=== PATIENT | male | born 1945 | race African-American/Black ===

== ENCOUNTER 2021-07-09 17:53 | Observation (INO) ==
[2021-07-10] MEDS ORDERED: ONDANSETRON 4 MG/2 ML VIAL IV STA (01:23)
[2021-07-10] MEDS ORDERED: HYDROmorphone 2 MG/1 ML VIAL IV ONE ×2 (01:23→15:42)
[2021-07-10] MEDS ORDERED: KETOROLAC 30 MG/1 ML VIAL IV STA (01:23)
[2021-07-10] MEDS ORDERED: METHOCARBAMOL 1,000 MG/10 ML VIAL IV STA (01:24)
[2021-07-10 01:54] LABS: Basophils # 0.1 10*3/uL (0.0-0.2); Basophils % 0.8 % (0.0-0.8); Eosinophils # 0.2 10*3/uL (0.0-0.87); Hematocrit 50.4 VOL% (42.0-52.0); Hemoglobin 17.1 GM/DL (14.0-18.0); Immature Granulocytes % 0.8 %; Immature Granulocytes Absolute 0.09 #; Lymphocytes # 3.5 10*3/uL (1.4-4.0); Lymphocytes % 31.3 % (21.2-54.2); Mean Corpuscular HGB Conc 33.9 GM/DL (32-36); Mean Corpuscular Volume 87.2 FL (87-102); Mean Platelet Volume 10.5 FL (9.6-12.0); Monocytes % 9.7 % (1.7-12.7); Neutrophils % 55.4 % (38.7-73.9); Platelet Count 209 T/CUMM (130-400); Red Blood Count 5.78 MC/CUMM (3.8-5.5); Red Cell Distribution Width 12.3 % (9.3-17.3); White Blood Count 11.1 T/CUMM (4-12)
[2021-07-10 01:57] LABS: Bilirubin,Urine Negative (Negative); Blood, Urine Negative (Negative); Glucose,Urine (UA) Negative (Negative); Hyaline Casts,Urine 1 /LPF (0-3); Ketones,Urine Negative (Negative); Mucus,Urine Occasional /LPF (Occasional); Nitrite,Urine Negative (Negative); Protein,Urine Negative; RBC,Urine 2 /HPF (0-4); Urine Appearance CLEAR (Clear); Urine Color Yellow (Yellow); Urine Specific Gravity 1.024 (1.001-1.035); Urine Urobilinogen < 2.0 EU/DL (<2.0)
[2021-07-10 02:11] LABS: Albumin 3.8 G/DL (3.4-5.0); Bilirubin,Total 0.9 MG/DL (0.20-1.00); Calcium 9.3 MG/DL (8.5-10.1); Osmolality,Calculated 274.4 MOS/KG (273-304); PT Patient Result 11.4 SECS (10.5-12.0); Potassium 3.7 MMOL/L (3.5-5.1); Total Protein 8.4 G/DL (6.4-8.2)
[2021-07-10] MEDS ORDERED: ACETAMINOPHEN 325 MG TABLET PO PRN (05:56)
[2021-07-10] MEDS ORDERED: ONDANSETRON 4 MG/2 ML VIAL IV PRN (05:56)
[2021-07-10] MEDS ORDERED: LACTULOSE 20 GM/30 ML UDCUP PO PRN (05:56)
[2021-07-10] MEDS: HYDROmorphone 2 MG/1 ML VIAL IV PRN ×2 (06:10→14:01)
[2021-07-10] MEDS: ENOXAPARIN 40 MG/0.4 ML SYRINGE SUBCUT SCH (06:11)
[2021-07-10] MEDS: SODIUM CHLORIDE 0.9% 1,000 ML IV SCH ×2 (07:25→20:21)
[2021-07-10] MEDS ORDERED: PANTOPRAZOLE 40 MG VIAL IV SCH (09:00)
[2021-07-10] MEDS: DOCUSATE SODIUM 100 MG CAPSULE PO SCH ×2 (10:26→20:15)
[2021-07-10] MEDS ORDERED: ONDANSETRON 4 MG TABLET PO PRN (14:22)
[2021-07-10] MEDS ORDERED: FUROSEMIDE 20 MG/2 ML VIAL IV ONE (14:25)
[2021-07-10] MEDS ORDERED: DIAZEPAM 5 MG TABLET PO ONE (15:39)
[2021-07-10] MEDS: FLECAINIDE 50 MG TABLET PO SCH ×2 (18:26→20:15)
[2021-07-10] MEDS: LEVOTHYROXINE 100 MCG TABLET PO SCH (18:27)
[2021-07-10] MEDS: methylPREDNISolone SOD SUC 40 MG/1 ML VIAL IV SCH (18:31)
[2021-07-10] MEDS: DOXAZOSIN 1 MG TABLET PO SCH (18:33)
[2021-07-10] MEDS: LIDOCAINE 5% PATCH TRANSDERM SCH (18:34)
[2021-07-10] MEDS: GABAPENTIN 100 MG CAPSULE PO SCH (20:15)
[2021-07-10] MEDS: KETOROLAC 15 MG/1 ML VIAL IV SCH (21:31)
[2021-07-11] MEDS: methylPREDNISolone SOD SUC 40 MG/1 ML VIAL IV SCH ×2 (01:45→14:39)
[2021-07-11] MEDS ORDERED: MAGNESIUM HYDROXIDE SUSP 30 ML UDCUP PO PRN (03:24)
[2021-07-11] MEDS: oxyCODONE/ACETAMINOPHEN 5-325 MG TABLET PO PRN ×2 (04:00→23:37)
[2021-07-11] MEDS: KETOROLAC 15 MG/1 ML VIAL IV SCH ×3 (05:54→21:32)
[2021-07-11] MEDS: PANTOPRAZOLE 40 MG TABLET PO SCH (05:54)
[2021-07-11] MEDS: LEVOTHYROXINE 100 MCG TABLET PO SCH (05:54)
[2021-07-11 06:16] LABS: Basophils % 0.1 % (0.0-0.8); Eosinophils % 0.1 % (0.00-10.9); Hematocrit 46.4 VOL% (42.0-52.0); Hemoglobin 15.5 GM/DL (14.0-18.0); Immature Granulocytes % 0.8 %; Immature Granulocytes Absolute 0.07 #; Lymphocytes # 0.9 10*3/uL (1.4-4.0); Lymphocytes % 10.5 % (21.2-54.2); Mean Corpuscular HGB Conc 33.4 GM/DL (32-36); Mean Platelet Volume 10.6 FL (9.6-12.0); Monocytes % 3.4 % (1.7-12.7); Neutrophils % 85.1 % (38.7-73.9); Platelet Count 197 T/CUMM (130-400); Red Blood Count 5.27 MC/CUMM (3.8-5.5); Red Cell Distribution Width 12.2 % (9.3-17.3); White Blood Count 8.7 T/CUMM (4-12)
[2021-07-11 06:33] LABS: Albumin 3.1 G/DL (3.4-5.0); Bilirubin,Total 2.5 MG/DL (0.20-1.00); Calcium 8.4 MG/DL (8.5-10.1); Potassium 4.8 MMOL/L (3.5-5.1); Total Protein 7.2 G/DL (6.4-8.2)
[2021-07-11] MEDS: DOXAZOSIN 1 MG TABLET PO SCH (09:26)
[2021-07-11] MEDS: ENOXAPARIN 40 MG/0.4 ML SYRINGE SUBCUT SCH (09:26)
[2021-07-11] MEDS: DOCUSATE SODIUM 100 MG CAPSULE PO SCH ×2 (09:26→21:32)
[2021-07-11] MEDS: FLECAINIDE 50 MG TABLET PO SCH ×2 (09:26→21:32)
[2021-07-11] MEDS: LIDOCAINE 5% PATCH TRANSDERM SCH (09:27)
[2021-07-11] MEDS: SODIUM CHLORIDE 0.9% 1,000 ML IV SCH (11:52)
[2021-07-11] MEDS: HYDROmorphone 2 MG/1 ML VIAL IV PRN (17:46)
[2021-07-11] MEDS: GABAPENTIN 100 MG CAPSULE PO SCH (21:32)
[2021-07-12] MEDS: HYDROmorphone 2 MG/1 ML VIAL IV PRN ×4 (02:40→23:50)
[2021-07-12] MEDS: methylPREDNISolone SOD SUC 40 MG/1 ML VIAL IV SCH ×2 (02:59→14:07)
[2021-07-12] MEDS: SODIUM CHLORIDE 0.9% 1,000 ML IV SCH ×2 (04:08→18:49)
[2021-07-12] MEDS: KETOROLAC 15 MG/1 ML VIAL IV SCH ×3 (05:39→21:24)
[2021-07-12] MEDS: LEVOTHYROXINE 100 MCG TABLET PO SCH (05:40)
[2021-07-12] MEDS: PANTOPRAZOLE 40 MG TABLET PO SCH (05:40)
[2021-07-12] MEDS: ENOXAPARIN 40 MG/0.4 ML SYRINGE SUBCUT SCH (08:28)
[2021-07-12] MEDS: DOCUSATE SODIUM 100 MG CAPSULE PO SCH ×2 (08:29→21:21)
[2021-07-12] MEDS: FLECAINIDE 50 MG TABLET PO SCH ×2 (08:29→21:21)
[2021-07-12] MEDS: DOXAZOSIN 1 MG TABLET PO SCH (08:29)
[2021-07-12] MEDS: oxyCODONE/ACETAMINOPHEN 5-325 MG TABLET PO PRN (12:25)
[2021-07-12] MEDS: LIDOCAINE 5% PATCH TRANSDERM SCH (14:07)
[2021-07-12] MEDS: GABAPENTIN 100 MG CAPSULE PO SCH (21:22)
[2021-07-13] MEDS: methylPREDNISolone SOD SUC 40 MG/1 ML VIAL IV SCH ×2 (02:16→22:03)
[2021-07-13] MEDS: HYDROmorphone 2 MG/1 ML VIAL IV PRN (04:40)
[2021-07-13 05:30] LABS: Basophils % 0.4 % (0.0-0.8); Eosinophils # 0.1 10*3/uL (0.0-0.87); Eosinophils % 0.8 % (0.00-10.9); Hematocrit 46.7 VOL% (42.0-52.0); Hemoglobin 15.4 GM/DL (14.0-18.0); Immature Granulocytes % 0.5 %; Immature Granulocytes Absolute 0.04 #; Lymphocytes # 1.2 10*3/uL (1.4-4.0); Lymphocytes % 14.1 % (21.2-54.2); Mean Corpuscular Volume 89.6 FL (87-102); Mean Platelet Volume 10.5 FL (9.6-12.0); Monocytes % 4.2 % (1.7-12.7); Platelet Count 218 T/CUMM (130-400); Red Blood Count 5.21 MC/CUMM (3.8-5.5); Red Cell Distribution Width 12.1 % (9.3-17.3); White Blood Count 8.4 T/CUMM (4-12)
[2021-07-13] MEDS: KETOROLAC 15 MG/1 ML VIAL IV SCH ×3 (05:40→22:04)
[2021-07-13 06:15] LABS: Bilirubin,Total 1.2 MG/DL (0.20-1.00); Calcium 8.4 MG/DL (8.5-10.1); Osmolality,Calculated 272.1 MOS/KG (273-304); Potassium 5.6 MMOL/L (3.5-5.1); Total Protein 7.2 G/DL (6.4-8.2)
[2021-07-13] MEDS: LEVOTHYROXINE 100 MCG TABLET PO SCH (06:18)
[2021-07-13] MEDS: PANTOPRAZOLE 40 MG TABLET PO SCH (06:18)
[2021-07-13] MEDS: LIDOCAINE 5% PATCH TRANSDERM SCH (09:07)
[2021-07-13] MEDS: DOXAZOSIN 1 MG TABLET PO SCH (09:08)
[2021-07-13] MEDS: FLECAINIDE 50 MG TABLET PO SCH ×2 (09:08→22:04)
[2021-07-13] MEDS: DOCUSATE SODIUM 100 MG CAPSULE PO SCH ×2 (09:08→22:04)
[2021-07-13] MEDS ORDERED: propofoL 200 MG/20 ML VIAL IV ONE ×2 (10:41→12:16)
[2021-07-13] MEDS ORDERED: fentaNYL 100 MCG/2 ML VIAL ONE (10:41)
[2021-07-13] MEDS ORDERED: LIDOCAINE 2% 5 ML VIAL ONE (10:41)
[2021-07-13] MEDS ORDERED: BUPIVACAINE 0.5% 50 ML VIAL ONE (11:36)
[2021-07-13] MEDS ORDERED: DEXAMETHASONE 10 MG/1 ML VIAL ONE (11:36)
[2021-07-13] MEDS ORDERED: LABETALOL 20 MG/4 ML SYRINGE IV ONE (12:16)
[2021-07-13] MEDS ORDERED: ONDANSETRON 4 MG/2 ML VIAL IV PRN (12:36)
[2021-07-13] MEDS ORDERED: HYDROmorphone 2 MG/1 ML VIAL IV PRN (12:36)
[2021-07-13] MEDS: SODIUM CHLORIDE 0.9% 1,000 ML IV SCH (18:40)
[2021-07-13] MEDS ORDERED: SODIUM POLYSTYRENE SULFATE 15 GM/60 ML BOTTLE PO STA (20:26)
[2021-07-13] MEDS ORDERED: GABAPENTIN 300 MG CAPSULE PO SCH (21:00)
[2021-07-14] MEDS: oxyCODONE/ACETAMINOPHEN 5-325 MG TABLET PO PRN (02:50)
[2021-07-14 05:10] LABS: Basophils % 0.1 % (0.0-0.8); Eosinophils % 0.1 % (0.00-10.9); Hematocrit 43.3 VOL% (42.0-52.0); Hemoglobin 14.2 GM/DL (14.0-18.0); Immature Granulocytes % 0.6 %; Immature Granulocytes Absolute 0.07 #; Lymphocytes # 1.4 10*3/uL (1.4-4.0); Lymphocytes % 13.1 % (21.2-54.2); Mean Corpuscular HGB Conc 32.8 GM/DL (32-36); Mean Corpuscular Volume 89.1 FL (87-102); Mean Platelet Volume 10.3 FL (9.6-12.0); Monocytes % 7.1 % (1.7-12.7); Platelet Count 217 T/CUMM (130-400); Red Blood Count 4.86 MC/CUMM (3.8-5.5); Red Cell Distribution Width 11.9 % (9.3-17.3)
[2021-07-14 05:43] LABS: Albumin 2.8 G/DL (3.4-5.0); Bilirubin,Total 1.1 MG/DL (0.20-1.00); Calcium 8.2 MG/DL (8.5-10.1); Osmolality,Calculated 277.8 MOS/KG (273-304); Potassium 4.5 MMOL/L (3.5-5.1); Total Protein 6.5 G/DL (6.4-8.2)
[2021-07-14] MEDS: LEVOTHYROXINE 100 MCG TABLET PO SCH (05:52)
[2021-07-14] MEDS: PANTOPRAZOLE 40 MG TABLET PO SCH (05:52)
[2021-07-14] MEDS: KETOROLAC 15 MG/1 ML VIAL IV SCH ×2 (05:54→15:04)
[2021-07-14] MEDS: DOCUSATE SODIUM 100 MG CAPSULE PO SCH (09:14)
[2021-07-14] MEDS: FLECAINIDE 50 MG TABLET PO SCH (09:15)
[2021-07-14] MEDS: LIDOCAINE 5% PATCH TRANSDERM SCH (09:15)
[2021-07-14] MEDS: DOXAZOSIN 1 MG TABLET PO SCH (09:15)
[2021-07-14] MEDS: methylPREDNISolone SOD SUC 40 MG/1 ML VIAL IV SCH (09:15)
[2021-07-14 11:36] VITALS: BP 144/73
== END 2021-07-14 15:56 | disposition home or self-care (01) ==
LOC: N.ED 17:53 → N.EDINP 17:53 → N.5E 07-10 07:34
PROVIDERS: ADMIT Internal Medicine; ATTEND Internal Medicine

== ENCOUNTER 2021-08-05 01:26 | Inpatient (IN) ==
[2021-08-05 02:15] LABS: Basophils # 0.1 10*3/uL (0.0-0.2); Basophils % 1.3 % (0.0-0.8); Eosinophils # 0.2 10*3/uL (0.0-0.87); Eosinophils % 2.8 % (0.00-10.9); Hematocrit 41.4 VOL% (42.0-52.0); Hemoglobin 14.5 GM/DL (14.0-18.0); Immature Granulocytes % 0.9 %; Immature Granulocytes Absolute 0.06 #; Lymphocytes # 2.3 10*3/uL (1.4-4.0); Lymphocytes % 35.2 % (21.2-54.2); Mean Corpuscular Volume 85.4 FL (87-102); Mean Platelet Volume 9.7 FL (9.6-12.0); Monocytes % 10.2 % (1.7-12.7); Neutrophils % 49.6 % (38.7-73.9); Platelet Count 270 T/CUMM (130-400); Red Blood Count 4.85 MC/CUMM (3.8-5.5); Red Cell Distribution Width 12.1 % (9.3-17.3); White Blood Count 6.4 T/CUMM (4-12)
[2021-08-05] MEDS ORDERED: ONDANSETRON 4 MG/2 ML VIAL IV STA (02:17)
[2021-08-05] MEDS ORDERED: NITROGLYCERIN 2% OINT 1 INCH/GM PACK TOP STA (02:17)
[2021-08-05] MEDS ORDERED: ASPIRIN 325 MG TABLET PO STA (02:17)
[2021-08-05] MEDS ORDERED: MORPHINE 2 MG/1 ML SYRINGE IV STA (02:17)
[2021-08-05] MEDS ORDERED: METOPROLOL TARTRATE 25 MG TABLET PO STA (02:17)
[2021-08-05] MEDS ORDERED: MORPHINE 4 MG/1 ML VIAL ONE ×2 (02:29→02:40)
[2021-08-05 02:37] LABS: Albumin 3.4 G/DL (3.4-5.0); Bilirubin,Total 0.8 MG/DL (0.20-1.00); Calcium 9.4 MG/DL (8.5-10.1); Osmolality,Calculated 273.8 MOS/KG (273-304); Potassium 3.9 MMOL/L (3.5-5.1); Total Protein 6.9 G/DL (6.4-8.2)
[2021-08-05] MEDS ORDERED: ENOXAPARIN 100 MG/ML SYRINGE SUBCUT STA (02:43)
[2021-08-05] MEDS ORDERED: METOPROLOL TARTRATE 5 MG/5 ML VIAL IV STA (02:43)
[2021-08-05] MEDS ORDERED: ACETAMINOPHEN 325 MG TABLET PO PRN (03:18)
[2021-08-05] MEDS ORDERED: SODIUM CHLORIDE 0.9% 1,000 ML IV SCH (03:18)
[2021-08-05] MEDS ORDERED: ONDANSETRON 4 MG/2 ML VIAL IV PRN (03:18)
[2021-08-05 03:55] LABS: Basophils # 0.1 10*3/uL (0.0-0.2); Basophils % 1.2 % (0.0-0.8); Eosinophils # 0.2 10*3/uL (0.0-0.87); Eosinophils % 2.9 % (0.00-10.9); Hematocrit 40.9 VOL% (42.0-52.0); Immature Granulocytes Absolute 0.07 #; Lymphocytes # 2.5 10*3/uL (1.4-4.0); Lymphocytes % 35.9 % (21.2-54.2); Mean Corpuscular HGB Conc 34.2 GM/DL (32-36); Mean Corpuscular Volume 86.8 FL (87-102); Mean Platelet Volume 9.6 FL (9.6-12.0); Monocytes % 9.9 % (1.7-12.7); Neutrophils % 49.1 % (38.7-73.9); Platelet Count 266 T/CUMM (130-400); Red Blood Count 4.71 MC/CUMM (3.8-5.5); Red Cell Distribution Width 12.1 % (9.3-17.3); White Blood Count 6.9 T/CUMM (4-12)
[2021-08-05 04:16] LABS: Albumin 3.3 G/DL (3.4-5.0); Bilirubin,Total 0.7 MG/DL (0.20-1.00); Calcium 9.2 MG/DL (8.5-10.1); Osmolality,Calculated 274.7 MOS/KG (273-304); Potassium 3.7 MMOL/L (3.5-5.1); Risk Ratio 5.32; Total Protein 7.1 G/DL (6.4-8.2); VLDL Cholesterol 25.8 MG/DL
[2021-08-05] MEDS: NITROGLYCERIN 2% OINT 1 INCH/GM PACK TOP SCH ×2 (06:07→12:04)
[2021-08-05] MEDS: MORPHINE 4 MG/1 ML VIAL IV PRN (07:22)
[2021-08-05] MEDS ORDERED: diphenhydrAMINE CAP 25 MG CAPSULE PO ONE (08:00)
[2021-08-05] MEDS ORDERED: DIAZEPAM 5 MG TABLET PO ONE (08:00)
[2021-08-05] MEDS ORDERED: diphenhydrAMINE CAP 25 MG CAPSULE ONE (08:08)
[2021-08-05] MEDS: PANTOPRAZOLE 40 MG VIAL IV SCH (08:57)
[2021-08-05] MEDS: ENOXAPARIN 80 MG/0.8 ML SYRINGE SUBCUT SCH ×2 (08:57→21:31)
[2021-08-05] MEDS: DOCUSATE SODIUM 100 MG CAPSULE PO SCH ×2 (08:57→21:31)
[2021-08-05] MEDS ORDERED: ASPIRIN EC 325 MG TABLET PO SCH (09:00)
[2021-08-05] MEDS ORDERED: HYDROmorphone 2 MG/1 ML VIAL ONE (09:42)
[2021-08-05] MEDS ORDERED: LIDOCAINE 1% 20 ML VIAL ONE (09:42)
[2021-08-05] MEDS ORDERED: MIDAZOLAM 2 MG/2 ML VIAL ONE (09:42)
[2021-08-05] MEDS ORDERED: NITROGLYCERIN 2% OINT 1 INCH/GM PACK TOP ONE (12:03)
[2021-08-05] MEDS ORDERED: METOPROLOL TARTRATE 5 MG/5 ML VIAL IV ONE (12:30)
[2021-08-05] MEDS ORDERED: AMIODARONE INJ 150 MG in DEXTROSE 5% 100 ML IV ONE (12:36)
[2021-08-05] MEDS ORDERED: MAGNESIUM HYDROXIDE SUSP 30 ML UDCUP PO PRN (12:39)
[2021-08-05] MEDS ORDERED: LACTULOSE 20 GM/30 ML UDCUP PO PRN (12:39)
[2021-08-05] MEDS ORDERED: METOPROLOL TARTRATE 25 MG TABLET PO SCH (12:40)
[2021-08-05] MEDS ORDERED: POTASSIUM CHLORIDE 20 MEQ TABLET PO ONE (12:42)
[2021-08-05] MEDS ORDERED: oxyCODONE/ACETAMINOPHEN 5-325 MG TABLET PO PRN (12:46)
[2021-08-05] MEDS: ASCORBIC ACID 500 MG TABLET PO SCH ×2 (12:56→21:30)
[2021-08-05] MEDS: FLECAINIDE 100 MG TABLET PO SCH ×2 (12:58→21:31)
[2021-08-05] MEDS ORDERED: AMIODARONE INJ 450 MG in DEXTROSE 5% 241 ML IV SCH (13:00)
[2021-08-05] MEDS ORDERED: SODIUM CHLORIDE 0.45% 1,000 ML IV SCH (13:00)
[2021-08-05] MEDS ORDERED: FLECAINIDE 100 MG TABLET PO ONE (16:14)
[2021-08-05 17:18] LABS: Hematocrit 41.1 VOL% (42.0-52.0)
[2021-08-05 17:25] LABS: Calcium 8.6 MG/DL (8.5-10.1); Potassium 4.8 MMOL/L (3.5-5.1)
[2021-08-05] MEDS ORDERED: NON-FORMULARY MEDICATION (Docusate Sodium Cap [Colace Cap] 100 MG) PO SCH (21:00)
[2021-08-05] MEDS: GABAPENTIN 300 MG CAPSULE PO SCH (21:30)
[2021-08-06] MEDS: LEVOTHYROXINE 100 MCG TABLET PO SCH (05:42)
[2021-08-06 05:43] LABS: Basophils # 0.1 10*3/uL (0.0-0.2); Basophils % 0.7 % (0.0-0.8); Eosinophils # 0.1 10*3/uL (0.0-0.87); Eosinophils % 1.5 % (0.00-10.9); Hematocrit 39.2 VOL% (42.0-52.0); Hemoglobin 13.4 GM/DL (14.0-18.0); Immature Granulocytes % 0.8 %; Immature Granulocytes Absolute 0.07 #; Lymphocytes # 2.4 10*3/uL (1.4-4.0); Lymphocytes % 27.5 % (21.2-54.2); Mean Corpuscular HGB Conc 34.2 GM/DL (32-36); Mean Corpuscular Volume 87.5 FL (87-102); Mean Platelet Volume 10.1 FL (9.6-12.0); Monocytes % 12.2 % (1.7-12.7); Neutrophils % 57.3 % (38.7-73.9); Platelet Count 258 T/CUMM (130-400); Red Blood Count 4.48 MC/CUMM (3.8-5.5); Red Cell Distribution Width 12.5 % (9.3-17.3); White Blood Count 8.6 T/CUMM (4-12)
[2021-08-06 05:49] LABS: Calcium 8.6 MG/DL (8.5-10.1); Osmolality,Calculated 272.1 MOS/KG (273-304); Potassium 4.1 MMOL/L (3.5-5.1)
[2021-08-06] MEDS: DOCUSATE SODIUM 100 MG CAPSULE PO SCH ×3 (08:58→22:42)
[2021-08-06] MEDS: ASCORBIC ACID 500 MG TABLET PO SCH ×2 (08:59→22:42)
[2021-08-06] MEDS: DOXAZOSIN 1 MG TABLET PO SCH (08:59)
[2021-08-06] MEDS: predniSONE 10 MG TABLET PO SCH (08:59)
[2021-08-06] MEDS: FLECAINIDE 100 MG TABLET PO SCH ×2 (08:59→22:42)
[2021-08-06] MEDS: ERGOCALCIFEROL 50,000 UNIT CAPSULE PO SCH (08:59)
[2021-08-06] MEDS: ENOXAPARIN 80 MG/0.8 ML SYRINGE SUBCUT SCH (09:00)
[2021-08-06] MEDS: LIDOCAINE 5% PATCH TRANSDERM SCH (09:04)
[2021-08-06] MEDS: PANTOPRAZOLE 40 MG VIAL IV SCH (11:08)
[2021-08-06] MEDS: GABAPENTIN 300 MG CAPSULE PO SCH (22:42)
[2021-08-06] MEDS: APIXABAN 5 MG TABLET PO SCH (22:42)
[2021-08-07 04:30] LABS: Basophils # 0.1 10*3/uL (0.0-0.2); Basophils % 0.7 % (0.0-0.8); Eosinophils # 0.2 10*3/uL (0.0-0.87); Hematocrit 36.4 VOL% (42.0-52.0); Hemoglobin 12.6 GM/DL (14.0-18.0); Immature Granulocytes % 0.6 %; Immature Granulocytes Absolute 0.05 #; Lymphocytes # 2.5 10*3/uL (1.4-4.0); Lymphocytes % 31.3 % (21.2-54.2); Mean Corpuscular HGB Conc 34.6 GM/DL (32-36); Mean Corpuscular Volume 87.7 FL (87-102); Mean Platelet Volume 10.2 FL (9.6-12.0); Monocytes % 10.9 % (1.7-12.7); Neutrophils % 54.5 % (38.7-73.9); Platelet Count 258 T/CUMM (130-400); Red Blood Count 4.15 MC/CUMM (3.8-5.5); Red Cell Distribution Width 12.3 % (9.3-17.3)
[2021-08-07 04:41] LABS: Calcium 8.1 MG/DL (8.5-10.1); Osmolality,Calculated 281.3 MOS/KG (273-304); Potassium 3.5 MMOL/L (3.5-5.1)
[2021-08-07] MEDS: LEVOTHYROXINE 100 MCG TABLET PO SCH (05:45)
[2021-08-07] MEDS: MORPHINE 4 MG/1 ML VIAL IV PRN ×2 (05:51→16:45)
[2021-08-07] MEDS: LIDOCAINE 5% PATCH TRANSDERM SCH (08:51)
[2021-08-07] MEDS: DOXAZOSIN 1 MG TABLET PO SCH (08:51)
[2021-08-07] MEDS: DOCUSATE SODIUM 100 MG CAPSULE PO SCH (08:51)
[2021-08-07] MEDS: FLECAINIDE 100 MG TABLET PO SCH ×2 (08:51→20:50)
[2021-08-07] MEDS: APIXABAN 5 MG TABLET PO SCH ×2 (08:52→20:50)
[2021-08-07] MEDS: PANTOPRAZOLE 40 MG VIAL IV SCH (08:52)
[2021-08-07] MEDS: ASCORBIC ACID 500 MG TABLET PO SCH ×2 (08:52→20:50)
[2021-08-07] MEDS: predniSONE 10 MG TABLET PO SCH (08:58)
[2021-08-07] MEDS: METOPROLOL SUCCINATE XL 25 MG TABLET PO SCH (09:01)
[2021-08-07] MEDS: GABAPENTIN 300 MG CAPSULE PO SCH (20:50)
[2021-08-08] MEDS: HYDROmorphone 2 MG TABLET PO PRN ×2 (04:12→16:25)
[2021-08-08 06:10] LABS: Albumin 2.6 G/DL (3.4-5.0); Bilirubin,Total 0.4 MG/DL (0.20-1.00); Calcium 8.7 MG/DL (8.5-10.1); Osmolality,Calculated 280.4 MOS/KG (273-304); Potassium 3.1 MMOL/L (3.5-5.1); Total Protein 6.3 G/DL (6.4-8.2)
[2021-08-08] MEDS: LEVOTHYROXINE 100 MCG TABLET PO SCH (06:18)
[2021-08-08] MEDS: DOXAZOSIN 1 MG TABLET PO SCH (09:21)
[2021-08-08] MEDS: FLECAINIDE 100 MG TABLET PO SCH ×2 (09:21→21:20)
[2021-08-08] MEDS: METOPROLOL SUCCINATE XL 25 MG TABLET PO SCH (09:21)
[2021-08-08] MEDS: predniSONE 10 MG TABLET PO SCH (09:22)
[2021-08-08] MEDS: DOCUSATE SODIUM 100 MG CAPSULE PO SCH (09:22)
[2021-08-08] MEDS: PANTOPRAZOLE 40 MG VIAL IV SCH (09:22)
[2021-08-08] MEDS: APIXABAN 5 MG TABLET PO SCH ×2 (09:22→21:20)
[2021-08-08] MEDS: ASCORBIC ACID 500 MG TABLET PO SCH ×2 (09:22→21:20)
[2021-08-08] MEDS: MORPHINE 4 MG/1 ML VIAL IV PRN (09:23)
[2021-08-08] MEDS: LIDOCAINE 5% PATCH TRANSDERM SCH (09:33)
[2021-08-08] MEDS: GABAPENTIN 300 MG CAPSULE PO SCH (21:20)
[2021-08-09] MEDS: MORPHINE 4 MG/1 ML VIAL IV PRN (03:46)
[2021-08-09 05:14] LABS: Basophils # 0.1 10*3/uL (0.0-0.2); Basophils % 1.1 % (0.0-0.8); Eosinophils # 0.3 10*3/uL (0.0-0.87); Eosinophils % 2.8 % (0.00-10.9); Hematocrit 37.8 VOL% (42.0-52.0); Hemoglobin 12.7 GM/DL (14.0-18.0); Immature Granulocytes % 1.3 %; Immature Granulocytes Absolute 0.12 #; Lymphocytes # 2.9 10*3/uL (1.4-4.0); Lymphocytes % 30.1 % (21.2-54.2); Mean Corpuscular HGB Conc 33.6 GM/DL (32-36); Mean Corpuscular Volume 89.2 FL (87-102); Mean Platelet Volume 10.1 FL (9.6-12.0); Monocytes % 8.4 % (1.7-12.7); NRBC # 0.02 10*3/uL; Neutrophils % 56.3 % (38.7-73.9); Platelet Count 306 T/CUMM (130-400); Red Blood Count 4.24 MC/CUMM (3.8-5.5); Red Cell Distribution Width 12.3 % (9.3-17.3); White Blood Count 9.6 T/CUMM (4-12)
[2021-08-09 05:34] LABS: Albumin 2.7 G/DL (3.4-5.0); Bilirubin,Total 0.4 MG/DL (0.20-1.00); Calcium 8.9 MG/DL (8.5-10.1); Osmolality,Calculated 277.5 MOS/KG (273-304); Potassium 3.6 MMOL/L (3.5-5.1); Total Protein 6.3 G/DL (6.4-8.2)
[2021-08-09] MEDS: LEVOTHYROXINE 100 MCG TABLET PO SCH (06:02)
[2021-08-09] MEDS ORDERED: fentaNYL 12 MCG/HR PATCH TRANSDERM SCH (09:00)
[2021-08-09] MEDS: DOXAZOSIN 1 MG TABLET PO SCH (10:19)
[2021-08-09] MEDS: DOCUSATE SODIUM 100 MG CAPSULE PO SCH (10:20)
[2021-08-09] MEDS: predniSONE 10 MG TABLET PO SCH (10:20)
[2021-08-09] MEDS: FLECAINIDE 100 MG TABLET PO SCH ×2 (10:20→21:41)
[2021-08-09] MEDS: ASCORBIC ACID 500 MG TABLET PO SCH ×2 (10:20→21:40)
[2021-08-09] MEDS: METOPROLOL SUCCINATE XL 25 MG TABLET PO SCH (10:20)
[2021-08-09] MEDS: APIXABAN 5 MG TABLET PO SCH ×2 (10:20→21:40)
[2021-08-09] MEDS: LIDOCAINE 5% PATCH TRANSDERM SCH (10:23)
[2021-08-09] MEDS: PANTOPRAZOLE 40 MG VIAL IV SCH (11:30)
[2021-08-09] MEDS ORDERED: HYDROmorphone 2 MG TABLET PO SCH (14:00)
[2021-08-09] MEDS: GABAPENTIN 300 MG CAPSULE PO SCH (21:41)
[2021-08-10 05:27] LABS: Basophils # 0.1 10*3/uL (0.0-0.2); Basophils % 1.1 % (0.0-0.8); Eosinophils # 0.3 10*3/uL (0.0-0.87); Eosinophils % 2.4 % (0.00-10.9); Hematocrit 36.6 VOL% (42.0-52.0); Hemoglobin 12.4 GM/DL (14.0-18.0); Immature Granulocytes % 1.6 %; Immature Granulocytes Absolute 0.16 #; Lymphocytes # 2.9 10*3/uL (1.4-4.0); Lymphocytes % 27.9 % (21.2-54.2); Mean Corpuscular HGB Conc 33.9 GM/DL (32-36); Mean Corpuscular Volume 88.8 FL (87-102); Mean Platelet Volume 10.4 FL (9.6-12.0); Monocytes % 7.7 % (1.7-12.7); NRBC # 0.03 10*3/uL; Neutrophils % 59.3 % (38.7-73.9); Platelet Count 334 T/CUMM (130-400); Red Blood Count 4.12 MC/CUMM (3.8-5.5); Red Cell Distribution Width 12.4 % (9.3-17.3); White Blood Count 10.3 T/CUMM (4-12)
[2021-08-10] MEDS: LEVOTHYROXINE 100 MCG TABLET PO SCH (05:45)
[2021-08-10] MEDS: HYDROmorphone 2 MG TABLET PO PRN (05:45)
[2021-08-10 05:52] LABS: Albumin 2.6 G/DL (3.4-5.0); Bilirubin,Total 0.6 MG/DL (0.20-1.00); Calcium 8.5 MG/DL (8.5-10.1); Osmolality,Calculated 275.7 MOS/KG (273-304); Potassium 3.6 MMOL/L (3.5-5.1); Total Protein 6.3 G/DL (6.4-8.2)
[2021-08-10 05:53] LABS: Band Neutrophils 1 % (0-10); Eosinophils 3 % (0-10); Lymphocytes 30 % (20-55); Nucleated Red Blood Cells 1 (0-5); Segmented Neutrophils 58 % (50-85); Total Cells Counted 100
[2021-08-10 05:54] LABS: Hypochromia Slight; Microcytosis Slight; Platelet Estimate Normal
[2021-08-10] MEDS: APIXABAN 5 MG TABLET PO SCH ×2 (09:08→20:54)
[2021-08-10] MEDS: FLECAINIDE 100 MG TABLET PO SCH ×2 (09:08→20:53)
[2021-08-10] MEDS: METOPROLOL SUCCINATE XL 25 MG TABLET PO SCH (09:09)
[2021-08-10] MEDS: DOCUSATE SODIUM 100 MG CAPSULE PO SCH (09:09)
[2021-08-10] MEDS: PANTOPRAZOLE 40 MG VIAL IV SCH (09:09)
[2021-08-10] MEDS: ASCORBIC ACID 500 MG TABLET PO SCH ×2 (09:09→20:54)
[2021-08-10] MEDS: DOXAZOSIN 1 MG TABLET PO SCH (09:09)
[2021-08-10] MEDS: predniSONE 10 MG TABLET PO SCH (09:09)
[2021-08-10] MEDS: LIDOCAINE 5% PATCH TRANSDERM SCH (09:11)
[2021-08-10] MEDS: GABAPENTIN 300 MG CAPSULE PO SCH (20:53)
[2021-08-11] MEDS: HYDROmorphone 2 MG TABLET PO PRN ×2 (04:32→23:05)
[2021-08-11 05:06] LABS: Basophils # 0.1 10*3/uL (0.0-0.2); Basophils % 1.2 % (0.0-0.8); Eosinophils # 0.2 10*3/uL (0.0-0.87); Eosinophils % 2.2 % (0.00-10.9); Hematocrit 35.9 VOL% (42.0-52.0); Immature Granulocytes % 1.6 %; Immature Granulocytes Absolute 0.17 #; Mean Corpuscular HGB Conc 33.4 GM/DL (32-36); Mean Corpuscular Volume 88.9 FL (87-102); Mean Platelet Volume 10.2 FL (9.6-12.0); Monocytes % 7.4 % (1.7-12.7); NRBC # 0.02 10*3/uL; Neutrophils % 58.6 % (38.7-73.9); Platelet Count 320 T/CUMM (130-400); Red Blood Count 4.04 MC/CUMM (3.8-5.5); Red Cell Distribution Width 12.7 % (9.3-17.3); White Blood Count 10.5 T/CUMM (4-12)
[2021-08-11 05:23] LABS: Albumin 2.7 G/DL (3.4-5.0); Bilirubin,Total 0.5 MG/DL (0.20-1.00); Calcium 8.8 MG/DL (8.5-10.1); Osmolality,Calculated 275.7 MOS/KG (273-304); Potassium 3.7 MMOL/L (3.5-5.1); Total Protein 6.2 G/DL (6.4-8.2)
[2021-08-11] MEDS: LEVOTHYROXINE 100 MCG TABLET PO SCH (06:12)
[2021-08-11] MEDS: ASCORBIC ACID 500 MG TABLET PO SCH ×2 (08:59→20:22)
[2021-08-11] MEDS: APIXABAN 5 MG TABLET PO SCH ×2 (08:59→20:22)
[2021-08-11] MEDS: predniSONE 10 MG TABLET PO SCH (08:59)
[2021-08-11] MEDS: METOPROLOL SUCCINATE XL 25 MG TABLET PO SCH (08:59)
[2021-08-11] MEDS: DOCUSATE SODIUM 100 MG CAPSULE PO SCH (08:59)
[2021-08-11] MEDS: FLECAINIDE 100 MG TABLET PO SCH ×2 (09:00→20:22)
[2021-08-11] MEDS: PANTOPRAZOLE 40 MG VIAL IV SCH (09:00)
[2021-08-11] MEDS: ERGOCALCIFEROL 50,000 UNIT CAPSULE PO SCH (09:00)
[2021-08-11] MEDS: DOXAZOSIN 1 MG TABLET PO SCH (09:00)
[2021-08-11] MEDS: LIDOCAINE 5% PATCH TRANSDERM SCH (09:01)
[2021-08-11] MEDS ORDERED: fentaNYL 25 MCG/HR PATCH TRANSDERM SCH (11:29)
[2021-08-11] MEDS: GABAPENTIN 300 MG CAPSULE PO SCH ×2 (14:54→20:22)
[2021-08-12 05:54] LABS: Albumin 2.7 G/DL (3.4-5.0); Bilirubin,Total 0.8 MG/DL (0.20-1.00); Calcium 8.5 MG/DL (8.5-10.1); Osmolality,Calculated 280.4 MOS/KG (273-304); Total Protein 6.3 G/DL (6.4-8.2)
[2021-08-12] MEDS: LEVOTHYROXINE 100 MCG TABLET PO SCH (06:12)
[2021-08-12] MEDS: PANTOPRAZOLE 40 MG VIAL IV SCH ×2 (07:59→08:08)
[2021-08-12] MEDS: APIXABAN 5 MG TABLET PO SCH (10:10)
[2021-08-12] MEDS: ASCORBIC ACID 500 MG TABLET PO SCH (10:10)
[2021-08-12] MEDS: METOPROLOL SUCCINATE XL 25 MG TABLET PO SCH (10:10)
[2021-08-12] MEDS: DOCUSATE SODIUM 100 MG CAPSULE PO SCH (10:10)
[2021-08-12] MEDS: DOXAZOSIN 1 MG TABLET PO SCH (10:10)
[2021-08-12] MEDS: FLECAINIDE 100 MG TABLET PO SCH (10:10)
[2021-08-12] MEDS: predniSONE 10 MG TABLET PO SCH (10:10)
[2021-08-12] MEDS: GABAPENTIN 300 MG CAPSULE PO SCH (12:35)
[2021-08-12] MEDS: LIDOCAINE 5% PATCH TRANSDERM SCH (13:12)
[2021-08-12 14:18] VITALS: BP 117/74
[2021-08-12] MEDS ORDERED: GABAPENTIN 400 MG CAPSULE PO SCH (15:00)
[2021-08-14] MEDS ORDERED: APIXABAN 5 MG TABLET PO SCH (09:00)
== END 2021-08-12 19:30 | disposition home health service (06) | DRG 164 ==
LOC: N.ED 01:26 → N.EDINP 02:47 → N.TELES 09:27
PROVIDERS: ADMIT Internal Medicine; ATTEND Internal Medicine

== ENCOUNTER 2022-06-30 12:25 | Observation (INO) ==
[2022-06-30] MEDS ORDERED: ASPIRIN 325 MG TABLET PO STA (12:42)
[2022-06-30] MEDS ORDERED: hydrALAZINE 20 MG/1 ML VIAL IV STA (12:42)
[2022-06-30] MEDS ORDERED: NITROGLYCERIN 2% OINT 1 INCH/GM PACK TOP STA (12:42)
[2022-06-30] MEDS ORDERED: ONDANSETRON 4 MG/2 ML VIAL IV ONE (12:42)
[2022-06-30 13:04] LABS: Basophils # 0.1 10*3/uL (0.0-0.2); Basophils % 1.1 % (0.0-0.8); Eosinophils # 0.4 10*3/uL (0.0-0.87); Eosinophils % 5.4 % (0.00-10.9); Hematocrit 47.2 VOL% (42.0-52.0); Hemoglobin 16.1 GM/DL (14.0-18.0); Immature Granulocytes % 0.3 %; Immature Granulocytes Absolute 0.02 #; Lymphocytes # 2.8 10*3/uL (1.4-4.0); Lymphocytes % 43.5 % (21.2-54.2); Mean Corpuscular HGB Conc 34.1 GM/DL (32-36); Mean Corpuscular Volume 86.9 FL (87-102); Mean Platelet Volume 10.6 FL (9.6-12.0); Monocytes # 0.7 10*3/uL (0.11-0.8); Monocytes % 10.6 % (1.7-12.7); Neutrophils % 39.1 % (38.7-73.9); Platelet Count 243 T/CUMM (130-400); Red Blood Count 5.43 MC/CUMM (3.8-5.5); Red Cell Distribution Width 12.6 % (9.3-17.3); White Blood Count 6.5 T/CUMM (4-12)
[2022-06-30 13:14] LABS: PT Patient Result 10.9 SECS (10.1-12.1)
[2022-06-30 13:25] LABS: Bilirubin,Total 1.6 MG/DL (0.20-1.00); Calcium 9.1 MG/DL (8.5-10.1); Osmolality,Calculated 277.5 MOS/KG (273-304); Potassium 4.1 MMOL/L (3.5-5.1); Total Protein 8.6 G/DL (6.4-8.2)
[2022-06-30] MEDS ORDERED: MORPHINE 2 MG/1 ML SYRINGE IV PRN (14:39)
[2022-06-30] MEDS ORDERED: BISACODYL 5 MG TABLET PO PRN (14:39)
[2022-06-30] MEDS ORDERED: NALOXONE 0.4 MG/ML VIAL IV PRN (14:39)
[2022-06-30] MEDS ORDERED: ONDANSETRON 4 MG/2 ML VIAL IV PRN (14:39)
[2022-06-30] MEDS: SODIUM CHLORIDE 0.9% 1,000 ML IV SCH (16:09)
[2022-06-30] MEDS: ENOXAPARIN 40 MG/0.4 ML SYRINGE SUBCUT SCH (16:09)
[2022-06-30] MEDS: ACETAMINOPHEN 325 MG TABLET PO PRN (18:22)
[2022-06-30] MEDS ORDERED: hydrALAZINE 20 MG/1 ML VIAL IV PRN (19:31)
[2022-06-30] MEDS: FLECAINIDE 50 MG TABLET PO SCH (20:36)
[2022-06-30] MEDS: DOCUSATE SODIUM 100 MG CAPSULE PO SCH (20:36)
[2022-06-30] MEDS ORDERED: ATORVASTATIN 40 MG TABLET PO SCH (21:00)
[2022-07-01] MEDS: SODIUM CHLORIDE 0.9% 1,000 ML IV SCH ×2 (01:36→04:58)
[2022-07-01] MEDS: ACETAMINOPHEN 325 MG TABLET PO PRN (05:59)
[2022-07-01 06:07] LABS: Basophils # 0.1 10*3/uL (0.0-0.2); Basophils % 1.9 % (0.0-0.8); Eosinophils # 0.4 10*3/uL (0.0-0.87); Eosinophils % 6.9 % (0.00-10.9); Hematocrit 41.3 VOL% (42.0-52.0); Hemoglobin 13.9 GM/DL (14.0-18.0); Immature Granulocytes % 0.4 %; Immature Granulocytes Absolute 0.02 #; Lymphocytes % 37.5 % (21.2-54.2); Mean Corpuscular HGB Conc 33.7 GM/DL (32-36); Mean Corpuscular Volume 88.2 FL (87-102); Mean Platelet Volume 10.8 FL (9.6-12.0); Monocytes # 0.7 10*3/uL (0.11-0.8); Monocytes % 12.2 % (1.7-12.7); Neutrophils % 41.1 % (38.7-73.9); Platelet Count 213 T/CUMM (130-400); Red Blood Count 4.68 MC/CUMM (3.8-5.5); Red Cell Distribution Width 12.7 % (9.3-17.3); White Blood Count 5.4 T/CUMM (4-12)
[2022-07-01 06:22] LABS: Albumin 3.1 G/DL (3.4-5.0); Bilirubin,Total 1.2 MG/DL (0.20-1.00); Calcium 8.5 MG/DL (8.5-10.1); Osmolality,Calculated 284.1 MOS/KG (273-304); Potassium 3.9 MMOL/L (3.5-5.1); Total Protein 6.7 G/DL (6.4-8.2)
[2022-07-01] MEDS ORDERED: LEVOTHYROXINE 100 MCG TABLET PO SCH (06:30)
[2022-07-01] MEDS ORDERED: amLODIPine 5 MG TABLET PO SCH (09:00)
[2022-07-01] MEDS ORDERED: ASCORBIC ACID 500 MG TABLET PO SCH (09:00)
[2022-07-01] MEDS ORDERED: METOPROLOL SUCCINATE XL 25 MG TABLET PO SCH (09:00)
[2022-07-01] MEDS ORDERED: ROSUVASTATIN 20 MG TABLET PO SCH (09:00)
[2022-07-01] MEDS ORDERED: PANTOPRAZOLE 40 MG TABLET PO SCH (09:00)
[2022-07-01] MEDS ORDERED: ASPIRIN EC 81 MG TABLET PO SCH (09:00)
[2022-07-01] MEDS: DOCUSATE SODIUM 100 MG CAPSULE PO SCH (09:44)
[2022-07-01] MEDS: FLECAINIDE 50 MG TABLET PO SCH (09:47)
[2022-07-01] MEDS: ENOXAPARIN 40 MG/0.4 ML SYRINGE SUBCUT SCH (14:33)
[2022-07-01 16:05] VITALS: BP 147/72
== END 2022-07-01 20:00 | disposition home health service (06) ==
LOC: N.EDINP 12:25 → N.ED 12:25 → N.TELES 16:35
PROVIDERS: ADMIT Internal Medicine; ATTEND Internal Medicine